=== PATIENT | female | born 1955 ===

== ENCOUNTER 2025-05-10 06:16 | Day surgery (SDC) | payer OTHER ==
[2025-05-06 12:12] VITALS: BP 146/80
[~2025-05-10] VITALS: Ht 167.6 cm; Wt 77.6 kg
[~2025-05-10 06:16] MED LIST: ATORVASTATIN CA10 MG PO; AZOR 5-20 MG T1 EACH PO; CADUET 10 MG-21 EACH PO; CARAFATE1 GM PO; DEXILANT60 MG PO; LOSARTAN-HCTZ1 EAC1 PO; PLAVIX75 MG PO
[2025-05-10] MEDS ORDERED: CEFAZOLIN SODIUM 1,000 MG VIAL ONE (08:05)
[2025-05-10] MEDS ORDERED: POVIDONE-IODINE 118 ML BOTT TOP ONE (08:58)
[2025-05-10] MEDS ORDERED: TRAM1TAB98 PO (10:17)
== END 2025-05-10 14:30 | disposition home or self-care (01) ==
LOC: CIR.AMB 06:16
PROVIDERS: ATTEND Obstetrics & Gynecology Gynecology
DX: D07.1 Carcinoma in situ of vulva (principal); Z88.6 Allergy status to analgesic agent; Z91.011 Allergy to milk products